=== PATIENT | female | born 1985 | race Caucasian/White ===

== ENCOUNTER 2016-09-17 11:11 | Emergency (ER) | payer MEDICAID ==
[2016-09-17] MEDS ORDERED: LIDOCAINE HCL/PF 1% 30 ML VIAL TP ONE (12:00)
[2016-09-17] MEDS ORDERED: TDAP [DIPH/PERTUSSIS/TET] 0.5 ML VIAL IM ONE ×2 (12:00→13:47)
[2016-09-17] MEDS ORDERED: LORAZEPAM 1 MG TABLET ONE (12:07)
[2016-09-17] MEDS ORDERED: LORAZEPAM 1 MG TABLET PO ONE (12:30)
[2016-09-17 14:18] VITALS: BP 114/74
== END 2016-09-17 14:18 | disposition home or self-care (01) ==
LOC: ER 11:13
DX: S01.81XA Laceration without foreign body of other part of head, initial encounter (principal); V43.52XA Car driver injured in collision with other type car in traffic accident, initial encounter; Y93.89 Activity, other specified; Y92.488 Other paved roadways as the place of occurrence of the external cause; Y99.8 Other external cause status
CPT/HCPCS: 70450-TC; 84703-TC; 90715; A6402; J3490